=== PATIENT | male | born 1975 | race Caucasian/White ===

== ENCOUNTER 2020-04-12 07:02 | Day surgery (SDC) | payer BC ==
[2020-04-11 10:32] VITALS: BMI 27.1
--- NOTE | 2020-04-11 20:41 | P.GSHP ---
History of Present Illness H&P Date: 04/12/20 CHIEF COMPLAINT: Back mass HISTORY OF PRESENT ILLNESS: The patient is a 45 year-old male with history of upper back mass. He presents today for surgical excision. PAST MEDICAL HISTORY: Please see list. PAST SURGICAL HISTORY: Please see list. MEDICATIONS: Please see list. ALLERGIES: Please see list. SOCIAL HISTORY: No illicit drug use FAMILY HISTORY: No reports of Crohn disease or ulcerative colitis. REVIEW OF ORGAN SYSTEMS: CONSTITUTIONAL: No reports of fevers or chills. GI: Denies any blood in stools or constipation. PHYSICAL EXAM: VITAL SIGNS: Stable Musculoskeletal: Approximately 5 cm cyst along the right upper back. SKIN: Lesion identified along bilateral thighs. GENERAL: Well developed and in no acute distress. Pleasant. HEENT: No sclera icterus. Extraocular movements grossly intact. Moist buccal mucosa. Head is atraumatic, normocephalic. Hears conversational speech. No nasal drainage. NECK: Supple without lymphadenopathy. No JV distention. CHEST: Non-labored respirations and equal bilateral excursions. CARDIOVASCULAR: Regular rate and rhythm. Palpable 2+ radial pulses. ABDOMEN: Soft. Non-tender. Nondistended. NEUROLOGIC: No focal or lateralizing signs. PSYCH: Appropriate affect. Alert and oriented to person, place and time. ASSESSMENT: 1. Cyst along the upper back. PLAN: 1. Will proceed of excision of subcutaneous tumor along the upper back. 2. DVT prophylaxis. 3. Antibiotic prophylaxis. 4. Time of recovery, at least one week. Past Medical History Past Medical History: Hyperlipidemia, Hypertension Additional Past Medical History / Comment(s): migraines, mass on middle of back(draining), History of Any Multi-Drug Resistant Organisms: None Reported Additional Past Surgical History / Comment(s): sinus surgery,oral surgery Past Anesthesia/Blood Transfusion Reactions: Motion Sickness Smoking Status: Never smoker - Past Family History Mother Family Medical History: Cancer Father Family Medical History: Cancer Medications and Allergies Home Medications Medication Instructions Recorded Confirmed Type lisinopriL [Zestril] 10 mg PO 1800 04/11/20 04/11/20 History Allergies Allergy/AdvReac Type Severity Reaction Status Date / Time antibiotic(name unknown) Allergy arms and Uncoded 04/11/20 10:25 legs went numb
[~2020-04-12 07:02] MED LIST: DEXAMETHASONE SOD PHOSPHATE 10 MG/ML 1 ML VIAL IV ONE; HYDROmorphone 0.5 MG/0.5 ML SYRINGE IVP PRN; LACTATED RINGERS 1,000 ML IV SCH; MIDAZOLAM 2 MG/2 ML VIAL IV PRN; ONDANSETRON 4 MG/2 ML VIAL IVP ONE; Pre Op ABX Message 1 EACH MISC MISCELLANE ONE; SCOPOLAMINE 1.5MG/72HR PATCH TRANSDERM ONE; VANCOMYCIN 1,500 MG in SODIUM CHLORIDE 0.9% 250 ML IVPB ONE
[2020-04-12 07:26] VITALS: RESP 16
[2020-04-12] MEDS ORDERED: LIDOCAINE 1% (10MG/ML) FOR IV START INTRADERMA ONE (07:38)
[2020-04-12] MEDS ORDERED: LIDOCAINE 1% INJ 10MG/ML (20 ML MDV) ONE (09:02)
[2020-04-12] MEDS ORDERED: PROPOFOL 10 MG/ML 20 ML VIAL IV ONE (09:02)
[2020-04-12] MEDS ORDERED: fentaNYL (PF) 50 MCG/ML 2 ML AMP ONE (09:02)
[2020-04-12] MEDS ORDERED: SUCCINYLCHOLINE CHLORIDE 100 MG/5 ML SYR IV ONE (09:02)
[2020-04-12] MEDS ORDERED: MIDAZOLAM 2 MG/2 ML VIAL ONE (09:02)
[2020-04-12] MEDS ORDERED: ePHEDrine SULFATE/0.9% NACL/PF 50 MG/5 ML SYRINGE IV ONE (09:02)
[2020-04-12] MEDS ORDERED: LIDOCAINE 1%-EPI 1:100,000 20 ML VIAL SQ ONE ×2 (09:46→10:29)
[2020-04-12] MEDS ORDERED: LACTATED RINGERS 1,000 ML IV ONE ×2 (10:23)
[2020-04-12 10:51] VITALS: TEMP 97
[2020-04-12] MEDS ORDERED: KETOROLAC 15 MG/ML 1 ML VIAL IM PRN (10:54)
--- NOTE | 2020-04-12 10:59 | P.OP ---
Date of Procedure: 04/12/20 Description of Procedure: SURGEON: REINA HAIDER MD SENIOR MATERIALS PLANNER: None. PREOPERATIVE DIAGNOSES: 1. Right upper back mass 2. Hypertensive heart disease POSTOPERATIVE DIAGNOSES: 1. Deep subfascial/submuscular right upper back mass, 5 x 12 cm 2. Hypertensive heart disease PROCEDURES PERFORMED: 1. Excision of deep subfascial/submuscular right upper back mass, 5 x 12 cm 2. Complex five layer closure right upper back incision, 12-cm Anesthesia: GETA, local Estimated Blood Loss (ml): 30 Pathology: other (back mass), anaerobic and aerobic culture ruptured cyst Condition: stable Disposition: same day COMPLICATIONS: None. Operative Findings: 1. Excision of deep subfascial right upper back mass 5 x 12 cm INDICATIONS: The patient is a 45-year-old male who presents with symptomatic draining upper back mass. He reports the mass had previously drained. He had been on antibiotics. Benefits and risks of surgical intervention were described including bleeding, infection, seroma, pain and recurrence. Informed consent was obtained. DESCRIPTION OR PROCEDURE: In the preoperative area, the area of concern was marked with indelible marker. Patient was brought into the operating room. After general induction, he was positioned in left lateral decubitus position. The back was prepped and draped in a standard sterile fashion with ChloraPrep. Timeout protocol was confirmed with the surgical team regarding the patient's name, procedure to be performed including preoperative medications. DVT prophylaxis was confirmed. A field block was placed of the right upper back. An elliptical transverse incision 5 x 12 cm was made using #10 blade was made along the marking into the dermis and subcutaneous tissue. Electro-Bovie cautery was used to enter deep into the fascia where a ruptured cyst extending to the deep fascia/muscle was removed in total. Cultures were taken of the cyst. To allow for closure, wide undermining over 5 cm was placed circumferentially into the deep subcutaneous tissues to allow for closure. Deep sutures of subfascial closure using 0 Vicryl for the fascia was placed. For the deep subcutaneous tissue, 0 Vicryl was placed. For the dermis, 3-0 Vicryl was placed in subcuticular interrupted fashion. Running subcuticular 3-0 Monocryl was placed along the dermis. The skin was cleansed with dilute hydroperoxide and Exofin tape with liquid was applied for a five layer closure. The incision was covered with Optifoam dressing. At the end of the procedure, needle, sponge, and instrument count was verified correct by surgical garment inspector. The patient tolerated the procedure well. Plan - Discharge Summary Discharge Rx Participant: No New Discharge Prescriptions: New Naproxen [Naprosyn] 250 mg PO TID PRN #30 tab PRN Reason: Pain Acetaminophen Tab [Tylenol Tab] 1,000 mg PO Q6HR PRN #30 tablet HYDROcodone/APAP 5-325MG [[place] 5-325] 1 tab PO Q6HR PRN 3 Days #10 tab PRN Reason: Pain Continue lisinopriL [Zestril] 10 mg PO 1800 Discharge Medication List lisinopriL [Zestril] 10 mg PO 1800 04/11/20 [History] Acetaminophen Tab [Tylenol Tab] 1,000 mg PO Q6HR PRN #30 tablet 04/12/20 [Rx] HYDROcodone/APAP 5-325MG [[place] 5-325] 1 tab PO Q6HR PRN 3 Days #10 tab 04/12/20 [Rx] Naproxen [Naprosyn] 250 mg PO TID PRN #30 tab 04/12/20 [Rx] Follow up Appointment(s)/Referral(s): Reina Haider MD [STAFF PHYSICIAN] - 04/18/20 Patient Instructions/Handouts: Dermal Cyst Excision (DC) Activity/Diet/Wound Care/Special Instructions: NO WIDE MOTIONS OF THE SHOULDERS/ARMS FOR 1 WEEK. See instructions on dressing. DO NOT REMOVE DRESSING. No lifting over 10 pounds in 2 weeks, April 26. May shower. No bath tub soaks for two weeks, April 26. Diet as tolerated. No driving while on narcotics. Notify surgeon for temperature over 101.5, increased redness along incision, increased pain along surgical site. Discharge Disposition: HOME SELF-CARE
[2020-04-12 11:51] VITALS: BP 121/65; PULSE 60
== END 2020-04-12 12:19 | disposition home or self-care (01) ==
LOC: OR 07:02
PROVIDERS: ATTEND Surgery Plastic and Reconstructive Surgery
DX: L72.0 Epidermal cyst (principal); I11.9 Hypertensive heart disease without heart failure; E78.5 Hyperlipidemia, unspecified; F41.9 Anxiety disorder, unspecified; G43.909 Migraine, unspecified, not intractable, without status migrainosus; Z88.1 Allergy status to other antibiotic agents; Z79.899 Other long term (current) drug therapy; Z98.890 Other specified postprocedural states; Z80.9 Family history of malignant neoplasm, unspecified
CPT/HCPCS: 21933; 13101; 13102; 88304; 87070; 87205; 87075; 87077; 87186; J2250; J3370; J1100; J2405; J2001; J3010; J0330; J2704

== ENCOUNTER 2024-05-09 08:51 | Day surgery (SDC) | payer BC ==
[2024-05-09 09:20] VITALS: RESP 16; TEMP 97.3
[2024-05-09] MEDS: IV FLUID CONTINUATION 1,000 ML IV ONE (09:27)
[2024-05-09] MEDS: LACTATED RINGERS 1,000 ML IV SCH (09:29)
[2024-05-09] MEDS ORDERED: PROPOFOL 10 MG/ML 20 ML VIAL IV ONE (09:43)
--- NOTE | 2024-05-09 09:57 | P.PCN ---
Date of Procedure: 05/09/24 Procedure(s) Performed: BRIEF HISTORY: Patient is a 49-year-old pleasant white male scheduled for an elective colonoscopy as a part of screening for colon cancer. PROCEDURE PERFORMED: Colonoscopy. PREOPERATIVE DIAGNOSIS: Screening for colon cancer. IV sedation per Anesthesia. PROCEDURE: After informed consent was obtained, the patient, was brought into the endoscopy unit. IV sedation was administered by Anesthesia under continuous monitoring. Digital rectal examination was normal. Initially the Olympus CF-160 flexible video colonoscope was then inserted in the rectum, gradually advanced into the cecum without any difficulty. Careful examination was performed as the scope was gradually being withdrawn. Ileocecal valve and the appendiceal orifice were visualized and appeared normal. Prep was excellent. Mucosa of the cecum, ascending colon, transverse colon, descending colon, sigmoid colon, and rectum appeared normal. Retroflexion was performed in the rectum and no lesions were seen. The patient tolerated the procedure well. IMPRESSION: Normal-appearing colon from rectum to cecum no with no evidence of colorectal neoplasia. RECOMMENDATIONS: Findings of this examination were discussed with the patient as well as his family. He was advised to have repeat screening colonoscopy in 10 years..
[2024-05-09 10:18] VITALS: BP 144/87; PULSE 74
== END 2024-05-09 10:43 | disposition home or self-care (01) ==
LOC: ORWHC2ENDO 08:51
PROVIDERS: ATTEND Internal Medicine Gastroenterology
DX: Z12.11 Encounter for screening for malignant neoplasm of colon (principal)
CPT/HCPCS: J2704; G0121; 45378

== ENCOUNTER → 2024-05-26 | Outpatient (CLI) | payer BC ==
--- NOTE | 2024-05-26 08:21 | US ---
EXAMINATION TYPE: US carotid duplex BILAT DATE OF EXAM: 05/26/2024 COMPARISON: NONE CLINICAL INDICATION: Male, 49 years old with history of R55 SYNCOPE AND COLLAPSE; throbbing in caroti ds Medically necessarily indication *REQUIRED: R55 Syncope TECHNIQUE: Grayscale, color Doppler and spectral Doppler evaluation of the bilateral carotid systems and vertebral arteries.Indirect Doppler criteria was utilized. FINDINGS: EXAM MEASUREMENTS: RIGHT: Peak Systolic Velocity (PSV) cm/sec ----- Right CCA: 115.7 ----- Right ICA: 112.4 ----- Right ECA: 118.9 ICA/CCA ratio: 1.0 RIGHT: End Diastole cm/sec ----- Right CCA: 33.3 ----- Right ICA: 30.3 ----- Right ECA: 34.9 LEFT: Peak Systolic Velocity (PSV) cm/sec ----- Left CCA: 89.8 ----- Left ICA: 78.7 ----- Left ECA: 89.7 ICA/CCA ratio: 0.9 LEFT: End Diastole cm/sec ----- Left CCA: 30.1 ----- Left ICA: 25.9 ----- Left ECA: 24.8 VERTEBRALS (direction of flow): Right Vertebral: Antegrade Left Vertebral: Antegrade Rhythm: Normal WHISKEY [employer]OOF READER NOTES: No significant stenosis seen IMPRESSION: Right: Less than 50% stenosis of the carotid bifurcation. Normal (no stenosis)=ICA PSV < 125 cm/s: ra mani < 2.0: ICA EDV<40 cm/s. Left: Less than 50% stenosis of the carotid bifurcation. Normal (no stenosis)=ICA PSV < 125 cm/s: rat io < 2.0: ICA EDV<40 cm/s. Criteria for Assigning % of Stenosis / Diameter reduction (Estimation based on the indirect measurements of the internal carotid artery velocities (ICA PSV). 1. Normal (no stenosis)=ICA PSV < 125 cm/s: ratio < 2.0: ICA EDV<40 cm/s. 2. Less than 50% stenosis=ICA PSV < 125 cm/s: ratio < 2.0: ICA EDV<40 cm/s. 3. 50 to 69% stenosis=ICA PSV of 125 to 230 cm/s: ration 2.0 ? 4.0: ICA EDV 40-100 cm/s. 4. Greater than 70% stenosis to near occlusion= ICA PSV > 230 cm/s: ratio > 4.0: ICA EDV > 100 cm/s. 5. Near occlusion= ICA PSV velocities may be low or undetectable: variable ratio and ICA EDV. 6. Total occlusion=unable to detect flow. [facility], , 05/26/2024 8:19 AM
== END | disposition home or self-care (01) ==
LOC: RADUSWWP 07:05
PROVIDERS: ATTEND Family Medicine
DX: I65.23 Occlusion and stenosis of bilateral carotid arteries (principal); R55 Syncope and collapse
CPT/HCPCS: 93880